=== PATIENT | female | born 1955 | race Caucasian/White ===

== ENCOUNTER 2017-08-16 18:34 | Emergency (ER) | payer OTHER ==
[2017-08-16] MEDS ORDERED: NS 0.9% 1000 ML* 1,000 ML IV ONE (19:29)
--- NOTE | 2017-08-16 19:42 | RAD ---
INDICATION: Cough COMPARISON: October 21, 2016 TECHNIQUE: PA and lateral dual-energy views were obtained. FINDINGS: Bones/Soft Tissues: There are no acute bony findings. Cardiomediastinal: The cardiomediastinal silhouette is normal. Lungs: There are no infiltrates. Pleura: There are no pleural effusions. Other: None IMPRESSION: NO ACTIVE DISEASE.
[2017-08-16] MEDS ORDERED: Ibuprofen TAB* 400 MG PO ONE (19:45)
[2017-08-17 06:45] VITALS: BP 141/84
--- NOTE | 2017-08-17 21:52 | ED ---
Rosalio Nguyen Gabriel, scribed for Barry Baer MD on 08/16/17 at 1915 . Influenza-Like Illness - HPI Summary HPI Summary: This patient is a 61 year old F presenting to [facility] with a chief complaint of flu like symptoms begging 3 days ago. The patient rates the pain 5/10 in severity. The patient was seen at [facility] and was sent to the ED to rule out PNA. Patient reports fever, difficulty swallowing, productive cough, sore throat, and fatigue. Patient denies ear pain, dizziness and lightheadedness. She was recently around her daughter who has PNA and granddaughter who has bronchitis. - History of Current Complaint Chief Complaint: EDGeneral Hx Obtained From: Patient Onset/Duration: Lasting Days - 3, Still Present Associated Signs & Symptoms: Negative - ear pain, dizziness and lightheadedness , Fever, Cough, Sore Throat - Allergy/Home Medications Allergies/Adverse Reactions: Allergies Allergy/AdvReac Type Severity Reaction Status Date / Time No Known Allergies Allergy Verified 06/12/17 12:00 PMH/Surg Hx/FS Hx/Imm Hx Previously Healthy: No Endocrine/Hematology History: Denies: Hx Diabetes Cardiovascular History: Denies: Hx Hypertension, Hx Pacemaker/ICD History: Denies: Hx Renal Disease Sensory History: Denies: Hx Hearing Aid Psychiatric History: Denies: Hx Panic Disorder - Cancer History Hx Chemotherapy: No Hx Radiation Therapy: No - Surgical History Surgery Procedure, Year, and Place: 3 C SECTIONS- Infectious Disease History: No Infectious Disease History: Denies: Traveled Outside the [place] in Last 30 Days - Family History Known Family History: Negative: Cardiac Disease, Hypertension - Social History Alcohol Use: Occasionally Hx Substance Use: No Substance Use Type: Reports: None Hx Tobacco Use: No Smoking Status (MU): Never Smoked Tobacco Review of Systems Positive: Fever, Fatigue Positive: Sore Throat, Other - difficulty swallowing . Negative: Ear Ache Positive: Cough Neurological: Negative - dizziness and lightheadedness All Other Systems Reviewed And Are Negative: Yes Physical Exam - Summary Physical Exam Summary: Appearance: Well appearing, no pain distress Skin: warm, dry, reflects adequate perfusion Head/face: normal Eyes: EOMI, CONNIE ENT: minimual clear nasal discharge Neck: supple, non-tender Respiratory: CTA, breath sounds present, lungs are clear Cardiovascular: pulses symmetrical, Patient is tachycardia and has strong pulses Abdomen: non-tender, soft Bowel: present Musculoskeletal: normal, strength/ROM intact, No peripheral edema Neuro: normal, sensory motor intact, A&Ox3 Triage Information Reviewed: Yes Vital Signs On Initial Exam: Initial Vitals Temp Pulse Resp BP Pulse Ox 100.2 F 108 20 155/91 100 08/16/17 18:42 08/16/17 18:42 08/16/17 18:42 08/16/17 18:42 08/16/17 18:42 Vital Signs Reviewed: Yes Diagnostics - Vital Signs Vital Signs Temp Pulse Resp BP Pulse Ox 08/16/17 18:42 100.2 F 108 20 155/91 100 - Laboratory Lab Results: Lab Results 08/16/17 Range/Units 20:21 Influenza A (Rapid) Negative (Negative) Influenza B (Rapid) Negative (Negative) Lab Statement: Any lab studies that have been ordered have been reviewed, and results considered in the medical decision making process. - Radiology CXR Xray Interpretation: No Acute Changes Radiology Interpretation Completed By: Radiologist - , NO ACTIVE DISEASE. ED physician has reviewed this radiology report and agrees. - EKG 21:11 Cardiac Rate: NL EKG Rhythm: Sinus Rhythm - NSR at [address] Segment: Non-Specific EKG Interpretation: normal axis interval Re-Evaluation - Re-Evaluation First Eval Re-Evaluation Time: 21:07 Change: Improved Comment: Patient is feeling better after IV fluids and Motrin. Flu Symptom Course/Dx - Course Course Of Treatment: pt with uri sx tx symptomatically. Improved. d/c with pmd f /u - Diagnoses Provider Diagnoses: Upper respiratory infection, Fever Discharge - Discharge Plan Condition: Good Disposition: HOME Prescriptions: Dexamethasone TAB* [Decadron TAB*] 4 mg PO BID #6 tab Phenylephrine-Guaifenesin [Gnp Mucus Relief PE] 1 tab PO BID #14 tab Patient Education Materials: Dexamethasone (By mouth), Upper Respiratory Infection (ED) Forms: *Work Release Referrals: Madelyn Humphries MD [Primary Care Provider] - 3 Days Additional Instructions: RETURN TO THE EMERGENCY DEPARTMENT FOR CHANGING OR WORSENING SYMPTOMS. The documentation as recorded by the Rosalio sorenson Gabriel accurately reflects the service I personally performed and the decisions made by , Barry Baer MD.
== END 2017-08-16 21:50 | disposition home or self-care (01) ==
LOC: ED 18:34
DX: J06.9 Acute upper respiratory infection, unspecified (principal); R50.9 Fever, unspecified
CPT/HCPCS: 71020; 87502; 93005; 99283; A9270-GY